=== PATIENT | female | born 1980 | race Caucasian/White ===

== ENCOUNTER 2016-04-07 17:20 | Emergency (ER) | payer OTHER, SELFPAY ==
--- NOTE | 2016-04-07 17:57 | EDDOCDS ---
Physician Documentation [facility] Name: Marycruz Izaguirre Age: 35 yrs Sex: Female : 1980 Arrival Date: 04/07/2016 Time: 17:20 Bed PR Private MD: Shanda Pcp Disposition: 04/07/16 17:49 Discharged to Home/Self Care. Impression: Pain in left foot, Pain in right foot. - Condition is Stable. - Discharge Instructions: Plantar Fasciitis. - Prescriptions for Ultram 50 mg Oral Tablet - take 1 tablet by ORAL route every 6 hours As needed MDD: 4 tabs; 16 tablet. Prednisone 20 mg Oral Tablet - take 2 tablet by ORAL route once daily for 5 days; 10 tablet. - Medication Reconciliation, Work Release Form - 1 day, Local Pharmacy Hours form. - Follow up: Emergency Department; When: As needed. Follow up: [facility]; When: Call to arrange an appointment; Reason: Wound/Symptom Recheck, Recheck today's complaints, Continuance of care. - Problem is chronic. - Symptoms are unchanged. Historical: - Allergies: Depakote (confusion); - Home Meds: 1. none - PMHx: none; - PSHx: right knee surgery; - Social history: Smoking status: Patient states former smoker of tobacco. No barriers to communication noted, The patient speaks fluent Romansh, Speaks appropriately for age. - Family history: Not pertinent. - : The pt / caregiver states he / she is not on anticoagulants. Home medication list is obtained from the patient. - Exposure Risk Screening:: None identified. 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 7 in. (170.18 cm) (R); Pain 6/10; 17:22 Body Mass Index 31.32 (90.72 kg, 170.18 cm) gr2 Signatures: Patricia EllisRN RN ck1 Heidi Munoz RN RN ead Castillo Ng PA-C PATanaC cc10 MTDD
--- NOTE | 2016-04-07 17:57 | EDDOCDS ---
Nurse's Notes [facility] Name: Marycruz Izaguirre Age: 35 yrs Sex: Female : 1980 Arrival Date: 04/07/2016 Time: 17:20 Bed PR2 / Private MD: No Pcp Diagnosis: Pain in left foot;Pain in right foot Presentation: 04/07 17:38 Presenting complaint: Patient states: pt c/o bilateral foot pain. States she was ead diagnosed with plantar fascitis by primary and told to see physical therapy. Adult Sepsis Screening: The patient does not have new or worsening altered mentation. Patient's respiratory rate is less than 22. Systolic blood pressure is greater than 100. Patient has a qSOFA score of 0- Negative Sepsis Screen. Suicide/Homicide risk assessment- the patient denies having any suicidal and/or homicidal ideations and does not present with any other emotional, behavioral or mental health complaints. Status: Patient is not a career services coordinator or dependent. Transition of care: patient was not received from another setting of care. 17:38 Acuity: AL Level 4 ead 17:38 Method Of Arrival: Walkin/Carried/Asstd ead Triage Assessment: 17:40 General: Appears in no apparent distress, comfortable, Behavior is appropriate for age, ead cooperative. Pain: Location: right foot and left foot Pain currently is 8 out of 10 on a pain scale. HIV screening NA for this visit Offered previously. Musculoskeletal: Reports pain in right foot and left foot. 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 none - PMHx: none; - PSHx: right knee surgery; - Social history: Smoking status: Patient states former smoker of tobacco. No barriers to communication noted, The patient speaks fluent Divehi, Speaks appropriately for age. - Family history: Not pertinent. - : The pt / caregiver states he / she is not on anticoagulants. Home medication list is obtained from the patient. - Exposure Risk Screening:: None identified. Screenin:55 Screening information is obtained from the patient. Fall risk: No risks identified. ck1 Assistance ADL's: requires no assistance with activities of daily living. Abuse/DV Screen: The patient / caregiver reports he/she is: not in a situation that causes fear, pain or injury. Nutritional screening: No deficits noted. Advance Directives: Currently, there is no health care proxy. home support is adequate. Assessment: 17:56 General: Appears in no apparent distress, comfortable, Behavior is appropriate for age, ck1 cooperative. Pain: Location: right foot and left foot Pain currently is 8 out of 10 on a pain scale. Derm: Skin is intact, is healthy with good turgor, Skin is pink, warm & dry. Musculoskeletal: Circulation, motion, and sensation intact Range of motion intact in all extremities. Vital Signs: 17:22 BP 136 / 84; Pulse 89; Resp 18 S; Temp 96.6(O); Pulse Ox 99% on R/A; Weight 90.72 kg gr2 (R); Height 5 ft. 7 in. (170.18 cm) (R); Pain 6/10; 17:22 Body Mass Index 31.32 (90.72 kg, 170.18 cm) gr2 Vitals: 17:22 Log In Time: April 07, 2016 at 17:22. gr2 ED Course: 17:22 Patient visited by Rose Chapman. gr2 17:22 No Pcp is Private Physician. gr2 17:22 Patient moved to Waiting gr2 17:24 Patient visited by Rose Chapman. gr2 17:24 Patient moved to Pre RCE gr2 17:39 Triage Initiated ead 17:41 Castillo Ng PA-C is PHCP. cc10 17:41 Genet Pedersen MD is Attending Physician. cc10 17:41 Patient visited by Castillo Ng PA-C. cc10 17:41 Patient visited by Castillo gN PA-C. cc10 17:41 Patient moved to PR2 / 26 ck1 17:49 [facility] is Referral Physician. cc10 17:55 No IV's were initiated during this patient's visit. No procedures done that require ck1 assistance. 17:56 The patient / caregiver is instructed regarding the plan of care and ED course. ck1 Order Results: There are currently no results for this order. Outcome: 17:49 Discharge ordered by Provider. cc10 17:55 Discharge Assessment: Patient awake, alert and oriented x 3. No cognitive and/or ck1 functional deficits noted. Patient verbalized understanding of disposition instructions. patient administered narcotics - no. The following High Risk Discharge criteria are identified: None. Discharged to home ambulatory. Condition: stable. Discharge instructions given to patient, Instructed on discharge instructions, follow up and referral plans. medication usage, Demonstrated understanding of instructions, medications, Pt was receptive of discharge instructions/ teaching. Prescriptions given X 2, Work note provided to patient. No special radiology studies were completed. Property :Personal belongings accompany Pt. 17:56 Patient left the ED. ck1 Signatures: Patricia EllisRN RN ck1 Rose Chapman gr2 Heidi MunozRN RN ead Castillo Ng, CRESCENCIO PATanaC cc10 Corrections: (The following items were deleted from the chart) 17:41 17:38 Presenting complaint: Patient states: pt c/o bilateral foot pain. States she was ead diagnosed with plantar fascitis by primary and given meds, states meds aren't working. ead MTDD
--- NOTE | 2016-04-09 18:57 | EDDOCDS ---
Physician Documentation [facility] Name: Marycruz Izaguirre Age: 35 yrs Sex: Female : 1980 Arrival Date: 04/07/2016 Time: 17:20 Bed PR Private MD: No Pcp Disposition: 04/07/16 17:49 Discharged to Home/Self Care. Impression: Pain in left foot, Pain in right foot. - Condition is Stable. - Discharge Instructions: Plantar Fasciitis. - Prescriptions for Ultram 50 mg Oral Tablet - take 1 tablet by ORAL route every 6 hours As needed MDD: 4 tabs; 16 tablet. Prednisone 20 mg Oral Tablet - take 2 tablet by ORAL route once daily for 5 days; 10 tablet. - Medication Reconciliation, Work Release Form - 1 day, Local Pharmacy Hours form. - Follow up: Emergency Department; When: As needed. Follow up: [facility]; When: Call to arrange an appointment; Reason: Wound/Symptom Recheck, Recheck today's complaints, Continuance of care. - Problem is chronic. - Symptoms are unchanged. Historical: - Allergies: Depakote (confusion); - Home Meds: 1. none - PMHx: none; - PSHx: right knee surgery; - Social history: Smoking status: Patient states former smoker of tobacco. No barriers to communication noted, The patient speaks fluent Mongolian, Speaks appropriately for age. - Family history: Not pertinent. - : The pt / caregiver states he / she is not on anticoagulants. Home medication list is obtained from the patient. - Exposure Risk Screening:: None identified. 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 7 in. (170.18 cm) (R); Pain 6/10; 17:22 Body Mass Index 31.32 (90.72 kg, 170.18 cm) gr2 MDM: 17:57 Financial registration complete. 18:19 [facility] Payment Agreement was scanned into [email or web address] and attached to record. 04/08 10:28 T-Sheet-- Draft Copy was scanned into [email or web address] and attached to record. gb Signatures: Cata Streeter, Reg Reg gb Daniel Dowling, Reg Reg lg Patricia EllisRN RN ck1 Heidi MunozRN RN eaCastillo Santiago, PATanaC PASamantha cc10 The chart was reviewed and I authenticate all verbal orders and agree with the evaluation and treatment provided.Attachments: 04/07 18:19 [facility] Payment Agreement lg 04/08 10:28 T-Sheet-- Draft Copy gb Chart Complete MTDD
--- NOTE | 2016-04-09 18:57 | EDDOCDS ---
Nurse's Notes [facility] Name: Marycruz Izaguirre Age: 35 yrs Sex: Female : 1980 Arrival Date: 04/07/2016 Time: 17:20 Bed PR2 / Private MD: No Pcp Diagnosis: Pain in left foot;Pain in right foot Presentation: 04/07 17:38 Presenting complaint: Patient states: pt c/o bilateral foot pain. States she was ead diagnosed with plantar fascitis by primary and told to see physical therapy. Adult Sepsis Screening: The patient does not have new or worsening altered mentation. Patient's respiratory rate is less than 22. Systolic blood pressure is greater than 100. Patient has a qSOFA score of 0- Negative Sepsis Screen. Suicide/Homicide risk assessment- the patient denies having any suicidal and/or homicidal ideations and does not present with any other emotional, behavioral or mental health complaints. Status: Patient is not a medical billing service or dependent. Transition of care: patient was not received from another setting of care. 17:38 Acuity: AL Level 4 ead 17:38 Method Of Arrival: Walkin/Carried/Asstd ead Triage Assessment: 17:40 General: Appears in no apparent distress, comfortable, Behavior is appropriate for age, ead cooperative. Pain: Location: right foot and left foot Pain currently is 8 out of 10 on a pain scale. HIV screening NA for this visit Offered previously. Musculoskeletal: Reports pain in right foot and left foot. 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 none - PMHx: none; - PSHx: right knee surgery; - Social history: Smoking status: Patient states former smoker of tobacco. No barriers to communication noted, The patient speaks fluent Finnish, Speaks appropriately for age. - Family history: Not pertinent. - : The pt / caregiver states he / she is not on anticoagulants. Home medication list is obtained from the patient. - Exposure Risk Screening:: None identified. Screenin:55 Screening information is obtained from the patient. Fall risk: No risks identified. ck1 Assistance ADL's: requires no assistance with activities of daily living. Abuse/DV Screen: The patient / caregiver reports he/she is: not in a situation that causes fear, pain or injury. Nutritional screening: No deficits noted. Advance Directives: Currently, there is no health care proxy. home support is adequate. Assessment: 17:56 General: Appears in no apparent distress, comfortable, Behavior is appropriate for age, ck1 cooperative. Pain: Location: right foot and left foot Pain currently is 8 out of 10 on a pain scale. Derm: Skin is intact, is healthy with good turgor, Skin is pink, warm & dry. Musculoskeletal: Circulation, motion, and sensation intact Range of motion intact in all extremities. Vital Signs: 17:22 BP 136 / 84; Pulse 89; Resp 18 S; Temp 96.6(O); Pulse Ox 99% on R/A; Weight 90.72 kg gr2 (R); Height 5 ft. 7 in. (170.18 cm) (R); Pain 6/10; 17:22 Body Mass Index 31.32 (90.72 kg, 170.18 cm) gr2 Vitals: 17:22 Log In Time: April 07, 2016 at 17:22. gr2 ED Course: 17:22 Patient visited by Rose Chapman. gr2 17:22 No Pcp is Private Physician. gr2 17:22 Patient moved to Waiting gr2 17:24 Patient visited by Rose Chapman. gr2 17:24 Patient moved to Pre RCE gr2 17:39 Triage Initiated ead 17:41 Castillo Ng PA-C is PHCP. cc10 17:41 Genet Pedersen MD is Attending Physician. cc10 17:41 Patient visited by Castillo Ng PA-C. cc10 17:41 Patient visited by Castillo Ng PA-C. cc10 17:41 Patient moved to PR2 / ck1 17:49 [facility] is Referral Physician. cc10 17:55 No IV's were initiated during this patient's visit. No procedures done that require ck1 assistance. 17:56 The patient / caregiver is instructed regarding the plan of care and ED course. ck1 18:19 [facility] [place] Agreement was scanned into [employer] and attached to record. lg 04/08 10:28 T-Sheet-- Draft Copy was scanned into [employer] and attached to record. gb Order Results: There are currently no results for this order. Outcome: 04/07 17:49 Discharge ordered by Provider. cc10 17:55 Discharge Assessment: Patient awake, alert and oriented x 3. No cognitive and/or ck1 functional deficits noted. Patient verbalized understanding of disposition instructions. patient administered narcotics - no. The following High Risk Discharge criteria are identified: None. Discharged to home ambulatory. Condition: stable. Discharge instructions given to patient, Instructed on discharge instructions, follow up and referral plans. medication usage, Demonstrated understanding of instructions, medications, Pt was receptive of discharge instructions/ teaching. Prescriptions given X 2, Work note provided to patient. No special radiology studies were completed. Property :Personal belongings accompany Pt. 17:56 Patient left the ED. ck1 Signatures: Cata Streeter, Reg Reg gb Daniel Dowling, Reg Reg lg Patricia EllisRN RN ck1 Rose Chapman gr2 Heidi MunozRN RN ead Castillo Ng, PA-C PA-C cc10 Corrections: (The following items were deleted from the chart) 17:41 17:38 Presenting complaint: Patient states: pt c/o bilateral foot pain. States she was ead diagnosed with plantar fascitis by primary and given meds, states meds aren't working. ead Chart Complete MTDD
--- NOTE | 2016-04-09 18:57 | EDDOCDS ---
Physician Documentation [facility] Name: Marycruz Izaguirre Age: 35 yrs Sex: Female : 1980 Arrival Date: 04/07/2016 Time: 17:20 Bed PR Private MD: No Pcp Disposition: 04/07/16 17:49 Discharged to Home/Self Care. Impression: Pain in left foot, Pain in right foot. - Condition is Stable. - Discharge Instructions: Plantar Fasciitis. - Prescriptions for Ultram 50 mg Oral Tablet - take 1 tablet by ORAL route every 6 hours As needed MDD: 4 tabs; 16 tablet. Prednisone 20 mg Oral Tablet - take 2 tablet by ORAL route once daily for 5 days; 10 tablet. - Medication Reconciliation, Work Release Form - 1 day, Local Pharmacy Hours form. - Follow up: Emergency Department; When: As needed. Follow up: [facility]; When: Call to arrange an appointment; Reason: Wound/Symptom Recheck, Recheck today's complaints, Continuance of care. - Problem is chronic. - Symptoms are unchanged. Historical: - Allergies: Depakote (confusion); - Home Meds: 1. none - PMHx: none; - PSHx: right knee surgery; - Social history: Smoking status: Patient states former smoker of tobacco. No barriers to communication noted, The patient speaks fluent Kyrgyz, Speaks appropriately for age. - Family history: Not pertinent. - : The pt / caregiver states he / she is not on anticoagulants. Home medication list is obtained from the patient. - Exposure Risk Screening:: None identified. 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 7 in. (170.18 cm) (R); Pain 6/10; 17:22 Body Mass Index 31.32 (90.72 kg, 170.18 cm) gr2 MDM: 17:57 Financial registration complete. 18:19 [facility] Payment Agreement was scanned into [employer] and attached to record. 04/08 10:28 T-Sheet-- Draft Copy was scanned into [employer] and attached to record. gb Signatures: Cata Streeter, Reg Reg gb Daniel Dowling, Reg Reg lg Patricia EllisRN RN ck1 Heidi MunozRN RN eaCastillo Santiago, PATanaC PASamantha cc10 The chart was reviewed and I authenticate all verbal orders and agree with the evaluation and treatment provided.Attachments: 04/07 18:19 [facility] [place] Payment Agreement lg 04/08 10:28 T-Sheet-- Draft Copy gb Chart Complete MTDD
== END 2016-04-07 17:56 | disposition home or self-care (01) ==
LOC: M ED 17:20
DX: M72.2 Plantar fascial fibromatosis (principal); Z87.891 Personal history of nicotine dependence; Z88.8 Allergy status to other drugs, medicaments and biological substances

== ENCOUNTER 2016-04-13 16:31 | Emergency (ER) | payer OTHER ==
--- NOTE | 2016-04-13 19:09 | EDDOCDS ---
Nurse's Notes [facility] Name: Marycruz Izaguirre Age: 35 yrs Sex: Female : 1980 Arrival Date: 04/13/2016 Time: 16:31 Bed I8 / 16 Private MD: No Pcp Diagnosis: Pain in unspecified foot-bilateral Presentation: 04/13 16:47 Presenting complaint: Patient states: Bilateral foot pain over the past year seen here mlb1 last week for same. Adult Sepsis Screening: The patient does not have new or worsening altered mentation. Patient's respiratory rate is less than 22. Systolic blood pressure is greater than 100. Patient has a qSOFA score of 0- Negative Sepsis Screen. Suicide/Homicide risk assessment- the patient denies having any suicidal and/or homicidal ideations and does not present with any other emotional, behavioral or mental health complaints. 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 Transition of care: patient was not received from another setting of care. 16:47 Acuity: AL Level 4 mlb1 16:47 Method Of Arrival: Walkin/Carried/Asstd mlb1 Triage Assessment: 16:49 General: Appears in no apparent distress, Behavior is appropriate for age, cooperative. mlb1 Pain: Location: heel of right foot and heal of left foot Pain currently is 4 out of 10 on a pain scale. Pain:. Pt Declines HIV testing. 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 Mirena 20 mcg/24 hr (5 years) intrauterine IUD - PMHx: none; - PSHx: right knee surgery; - Social history: Smoking status: Patient states former smoker of tobacco. No barriers to communication noted, The patient speaks fluent Trinidadian, Speaks appropriately for age. - Family history: Not pertinent. - : The pt / caregiver states he / she is not on anticoagulants. Home medication list is obtained from the patient. - Exposure Risk Screening:: None identified. Screenin:07 Screening information is obtained from the patient. Fall risk: No risks identified. dsf Assistance ADL's: requires no assistance with activities of daily living. Abuse/DV Screen: The patient / caregiver reports he/she is: not in a situation that causes fear, pain or injury. Nutritional screening: No deficits noted. Advance Directives: Currently, there is no health care proxy. home support is adequate. Assessment: 19:07 Adult Sepsis Screening: The patient does not have new or worsening altered mentation. dsf Patient's respiratory rate is less than 22. Systolic blood pressure is greater than 100. Patient has a qSOFA score of 0- Negative Sepsis Screen. General: Appears in no apparent distress, Behavior is appropriate for age, cooperative. Pain: Location: right and left heel Pain currently is 7 out of 10 on a pain scale. Quality of pain is described as sharp. Neurological: Level of Consciousness is awake, alert. Cardiovascular: No deficits noted. Respiratory: No deficits noted. Derm: Skin is pink, warm & dry. Musculoskeletal: Circulation, motion, and sensation intact. Vital Signs: 16:32 BP 154 / 77; Pulse 97; Resp 18; Temp 97.6; Pulse Ox 100% ; Weight 90.72 kg; Height 5 elp ft. 7 in. (170.18 cm); Pain 8/10; 16:32 Body Mass Index 31.32 (90.72 kg, 170.18 cm) [facility] Vitals: 16:32 Log In Time: April 13, 2016 at 16:30. [facility] ED Course: 16:32 Patient visited by Cathy Haynes PCA. elp 16:32 No Pcp is Private Physician. elp 16:32 Patient moved to Waiting elp 16:33 Patient visited by Cathy Haynes PCA. elp 16:33 Patient moved to Pre RCE elp 16:48 Triage Initiated mlb1 18:20 Lluvia Salomon FNP [facility] le 18:20 Patient moved to I8 / 16 nb2 18:34 Jean Li DPM is Referral Physician. le 18:37 Patient visited by Lluvia Salomon FNP. le 19:07 The patient / caregiver is instructed regarding the plan of care and ED course. dsf 19:07 No IV's were initiated during this patient's visit. No procedures done that require dsf assistance. Order Results: There are currently no results for this order. Outcome: 18:34 Discharge ordered by Provider. le 19:07 Discharge Assessment: Patient awake, alert and oriented x 3. No cognitive and/or dsf functional deficits noted. Patient verbalized understanding of disposition instructions. patient administered narcotics - no. The following High Risk Discharge criteria are identified: None. Discharged to home ambulatory. Condition: stable. Discharge instructions given to patient, Instructed on discharge instructions, follow up and referral plans. medication usage, Demonstrated understanding of instructions, medications, Pt was receptive of discharge instructions/ teaching. No special radiology studies were completed. Property sent home with patient. 19:09 Patient left the ED. dsf Signatures: Mitch Mcneill RN RN mlb1 Lluvia Salomon, HEAD WAITER HEAD WAITER Simran Magaña RN RN dsf Cathy Haynes, DIE REPAIRER FORGING DIE REPAIRER FORGING elp Mirian Whitman nb2 Corrections: (The following items were deleted from the chart) 16:53 16:49 Home Meds: none; gena avery MTDD
--- NOTE | 2016-04-13 19:09 | EDDOCDS ---
Physician Documentation [facility] Name: Marycruz Izaguirre Age: 35 yrs Sex: Female : 1980 Arrival Date: 04/13/2016 Time: 16:31 Bed I Private MD: Shanda Pcp Disposition: 04/13 18:37 Critical Care: Critical care not applicable. moy Disposition: 04/13/16 18:34 Discharged to Home/Self Care. Impression: Pain in unspecified foot - bilateral. - Condition is Stable. - Discharge Instructions: Plantar Fasciitis. - Medication Reconciliation, Local Pharmacy Hours form. - Follow up: Jean Li DPM; When: Call to arrange an appointment; Reason: Recheck today's complaints, Continuance of care. - Problem is an ongoing problem. - Symptoms are unchanged. - Notes: Continue to lose weight, this is what will help with the pain the most Buy a pair of shoes, with good support, for work Continue to use Naprosyn/Ibuprofen for pain Continue foot exercises Historical: - Allergies: Depakote (confusion); - Home Meds: 1. Mirena 20 mcg/24 hr (5 years) intrauterine IUD - PMHx: none; - PSHx: right knee surgery; - Social history: Smoking status: Patient states former smoker of tobacco. No barriers to communication noted, The patient speaks fluent Turkmen, Speaks appropriately for age. - Family history: Not pertinent. - : The pt / caregiver states he / she is not on anticoagulants. Home medication list is obtained from the patient. - Exposure Risk Screening:: None identified. 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 7 in. (170.18 cm); Pain 8/10; 16:32 Body Mass Index 31.32 (90.72 kg, 170.18 cm) elp Signatures: Mitch Mcneill RN RN mlb1 Lluvia Salomon, COAL PIPELINE OPERATOR COAL PIPELINE OPERATOR Simran Magaña,RN RN dsf The chart was reviewed and I authenticate all verbal orders and agree with the evaluation and treatment provided.Corrections: (The following items were deleted from the chart) 16:53 16:49 Home Meds: none; mlb1 mlb1 MTDD
--- NOTE | 2016-04-15 20:10 | EDDOCDS ---
Nurse's Notes [facility] Name: Marycruz Izaguirre Age: 35 yrs Sex: Female : 1980 Arrival Date: 04/13/2016 Time: 16:31 Bed I8 / 16 Private MD: No Pcp Diagnosis: Pain in unspecified foot-bilateral Presentation: 04/13 16:47 Presenting complaint: Patient states: Bilateral foot pain over the past year seen here mlb1 last week for same. Adult Sepsis Screening: The patient does not have new or worsening altered mentation. Patient's respiratory rate is less than 22. Systolic blood pressure is greater than 100. Patient has a qSOFA score of 0- Negative Sepsis Screen. Suicide/Homicide risk assessment- the patient denies having any suicidal and/or homicidal ideations and does not present with any other emotional, behavioral or mental health complaints. 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 Transition of care: patient was not received from another setting of care. 16:47 Acuity: AL Level 4 mlb1 16:47 Method Of Arrival: Walkin/Carried/Asstd mlb1 Triage Assessment: 16:49 General: Appears in no apparent distress, Behavior is appropriate for age, cooperative. mlb1 Pain: Location: heel of right foot and heal of left foot Pain currently is 4 out of 10 on a pain scale. Pain:. Pt Declines HIV testing. 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 Mirena 20 mcg/24 hr (5 years) intrauterine IUD - PMHx: none; - PSHx: right knee surgery; - Social history: Smoking status: Patient states former smoker of tobacco. No barriers to communication noted, The patient speaks fluent Pry[place], Speaks appropriately for age. - Family history: Not pertinent. - : The pt / caregiver states he / she is not on anticoagulants. Home medication list is obtained from the patient. - Exposure Risk Screening:: None identified. Screenin:07 Screening information is obtained from the patient. Fall risk: No risks identified. dsf Assistance ADL's: requires no assistance with activities of daily living. Abuse/DV Screen: The patient / caregiver reports he/she is: not in a situation that causes fear, pain or injury. Nutritional screening: No deficits noted. Advance Directives: Currently, there is no health care proxy. home support is adequate. Assessment: 19:07 Adult Sepsis Screening: The patient does not have new or worsening altered mentation. dsf Patient's respiratory rate is less than 22. Systolic blood pressure is greater than 100. Patient has a qSOFA score of 0- Negative Sepsis Screen. General: Appears in no apparent distress, Behavior is appropriate for age, cooperative. Pain: Location: right and left heel Pain currently is 7 out of 10 on a pain scale. Quality of pain is described as sharp. Neurological: Level of Consciousness is awake, alert. Cardiovascular: No deficits noted. Respiratory: No deficits noted. Derm: Skin is pink, warm & dry. Musculoskeletal: Circulation, motion, and sensation intact. Vital Signs: 16:32 BP 154 / 77; Pulse 97; Resp 18; Temp 97.6; Pulse Ox 100% ; Weight 90.72 kg; Height 5 elp ft. 7 in. (170.18 cm); Pain 8/10; 16:32 Body Mass Index 31.32 (90.72 kg, 170.18 cm) [facility] Vitals: 16:32 Log In Time: April 13, 2016 at 16:30. elp ED Course: 16:32 Patient visited by Cathy Haynes PCA. elp 16:32 No Pcp is Private Physician. elp 16:32 Patient moved to Waiting elp 16:33 Patient visited by Cathy Haynes PCA. elp 16:33 Patient moved to Pre RCE elp 16:48 Triage Initiated mlb1 18:20 [facility]. le 18:20 Patient moved to I8 / 16 nb2 18:34 Jean Li DPM is Referral Physician. le 18:37 Patient visited by Lluvia Salomon FNP. le 19:07 The patient / caregiver is instructed regarding the plan of care and ED course. dsf 19:07 No IV's were initiated during this patient's visit. No procedures done that require dsf assistance. 19:11 [facility] Payment Agreement was scanned into [employer] and attached to record. gjb 19:24 Patient name changed from Marycruz\S\Nicole\S\Devereese\S\ to Marycruz\S\ \S\Devereese. EDMS 04/14 10:48 T-Sheet-- Draft Copy was scanned into [employer] and attached to record. gb Order Results: There are currently no results for this order. Outcome: 04/13 18:34 Discharge ordered by Provider. le 19:07 Discharge Assessment: Patient awake, alert and oriented x 3. No cognitive and/or dsf functional deficits noted. Patient verbalized understanding of disposition instructions. patient administered narcotics - no. The following High Risk Discharge criteria are identified: None. Discharged to home ambulatory. Condition: stable. Discharge instructions given to patient, Instructed on discharge instructions, follow up and referral plans. medication usage, Demonstrated understanding of instructions, medications, Pt was receptive of discharge instructions/ teaching. No special radiology studies were completed. Property sent home with patient. 19:09 Patient left the ED. dsf Signatures: Dispatcher [employer] EDMN Cata Streeter, Reg Reg Mitch Arango RN RN mlb1 Lluvia Salomon, LINEMAN APPRENTICE Simran TrimbleRN RN dsf Cathy Haynes, DIRECTOR ASSET DIRECTOR ASSET elMariama French Nicole nb2 Corrections: (The following items were deleted from the chart) 16:53 16:49 Home Meds: none; gena avery Chart Complete MTDD
--- NOTE | 2016-04-15 20:10 | EDDOCDS ---
Physician Documentation [facility] Name: Marycruz Izaguirre Age: 35 yrs Sex: Female : 1980 Arrival Date: 04/13/2016 Time: 16:31 Bed I8 / 16 Private MD: Shanda Pcp Disposition: 04/13 18:37 Critical Care: Critical care not applicable. le Disposition: 04/13/16 18:34 Discharged to Home/Self Care. Impression: Pain in unspecified foot - bilateral. - Condition is Stable. - Discharge Instructions: Plantar Fasciitis. - Medication Reconciliation, Local Pharmacy Hours form. - Follow up: Jean Li DPM; When: Call to arrange an appointment; Reason: Recheck today's complaints, Continuance of care. - Problem is an ongoing problem. - Symptoms are unchanged. - Notes: Continue to lose weight, this is what will help with the pain the most Buy a pair of shoes, with good support, for work Continue to use Naprosyn/Ibuprofen for pain Continue foot exercises Historical: - Allergies: Depakote (confusion); - Home Meds: 1. Mirena 20 mcg/24 hr (5 years) intrauterine IUD - PMHx: none; - PSHx: right knee surgery; - Social history: Smoking status: Patient states former smoker of tobacco. No barriers to communication noted, The patient speaks fluent Persian, Speaks appropriately for age. - Family history: Not pertinent. - : The pt / caregiver states he / she is not on anticoagulants. Home medication list is obtained from the patient. - Exposure Risk Screening:: None identified. 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 7 in. (170.18 cm); Pain 8/10; 16:32 Body Mass Index 31.32 (90.72 kg, 170.18 cm) elp MDM: 19:11 [facility] Payment Agreement was scanned into [employer] and attached to record. b 19:11 Financial registration complete. b 04/14 10:48 T-Sheet-- Draft Copy was scanned into [employer] and attached to record. gb Signatures: Cata Streeter, Reg Reg gb Mitch Mcneill RN RN mlLluvia Lizarraga, CROWN PRESSER Simran TrimbleRN RN Mariama Last The chart was reviewed and I authenticate all verbal orders and agree with the evaluation and treatment provided.Corrections: (The following items were deleted from the chart) 04/13 16:53 16:49 Home Meds: none; gena avery Attachments: 19:11 [facility] Payment Agreement mary jane 04/14 10:48 T-Sheet-- Draft Copy gb Chart Complete MTDD
--- NOTE | 2016-04-15 20:10 | EDDOCDS ---
Physician Documentation [facility] Name: Marycruz Izaguirre Age: 35 yrs Sex: Female : 1980 Arrival Date: 04/13/2016 Time: 16:31 Bed I8 / 16 Private MD: Shanda Pcp Disposition: 04/13 18:37 Critical Care: Critical care not applicable. le Disposition: 04/13/16 18:34 Discharged to Home/Self Care. Impression: Pain in unspecified foot - bilateral. - Condition is Stable. - Discharge Instructions: Plantar Fasciitis. - Medication Reconciliation, Local Pharmacy Hours form. - Follow up: Jean Li DPM; When: Call to arrange an appointment; Reason: Recheck today's complaints, Continuance of care. - Problem is an ongoing problem. - Symptoms are unchanged. - Notes: Continue to lose weight, this is what will help with the pain the most Buy a pair of shoes, with good support, for work Continue to use Naprosyn/Ibuprofen for pain Continue foot exercises Historical: - Allergies: Depakote (confusion); - Home Meds: 1. Mirena 20 mcg/24 hr (5 years) intrauterine IUD - PMHx: none; - PSHx: right knee surgery; - Social history: Smoking status: Patient states former smoker of tobacco. No barriers to communication noted, The patient speaks fluent Portuguese, Speaks appropriately for age. - Family history: Not pertinent. - : The pt / caregiver states he / she is not on anticoagulants. Home medication list is obtained from the patient. - Exposure Risk Screening:: None identified. TAR HEEL: 16:50 LMP N/A - control method mlb1 Vital Signs: 16:32 BP 154 / 77; Pulse 97; Resp 18; Temp 97.6; Pulse Ox 100% ; Weight 90.72 kg / 200 lbs; elp Height 5 ft. 7 in. (170.18 cm); Pain 8/10; 16:32 Body Mass Index 31.32 (90.72 kg, 170.18 cm) elp MDM: 19:11 [facility] Payment Agreement was scanned into [employer] and attached to record. b 19:11 Financial registration complete. b 04/14 10:48 T-Sheet-- Draft Copy was scanned into [employer] and attached to record. gb Signatures: Cata Streeter, Reg Reg gb Mitch Mcneill RN RN mlLluvia Lizarraga, PAPER RULER Simran TrimbleRN RN Mariama Last The chart was reviewed and I authenticate all verbal orders and agree with the evaluation and treatment provided.Corrections: (The following items were deleted from the chart) 04/13 16:53 16:49 Home Meds: none; gena avery Attachments: 19:11 [facility] Payment Agreement mary jane 04/14 10:48 T-Sheet-- Draft Copy gb Chart Complete MTDD
== END 2016-04-13 19:09 | disposition home or self-care (01) ==
LOC: M ED 16:31
DX: M72.2 Plantar fascial fibromatosis (principal); Z88.8 Allergy status to other drugs, medicaments and biological substances; Z87.891 Personal history of nicotine dependence

== ENCOUNTER 2016-09-15 13:23 | Emergency (ER) | payer OTHER, SELFPAY ==
[~2016-09-15] VITALS: Ht 157.5 cm; Wt 94.6 kg
[2016-09-15] MEDS ORDERED: IBUPROFEN 800 MG TAB PO ONE (14:30)
[2016-09-15] MEDS ORDERED: ROBA500T PO (15:16)
[2016-09-15] MEDS ORDERED: IBUP80TA PO (15:16)
[2016-09-15 15:18] VITALS: BP 124/49
--- NOTE | 2016-09-15 15:21 | REP ---
RIGHT RIB SERIES: FIVE VIEWS INCLUDING PA CHEST HISTORY: Right anterior and lower rib pain. No comparison views. FINDINGS: PA chest radiograph is normal. There is no evidence of pneumothorax or hydrothorax. Multiple views of the right ribcage show no visible rib fracture or bony destructive lesion. IMPRESSION: Negative right rib series. Signed by Javad Gordon MD 09/15/2016 03:36 P
== END 2016-09-15 15:25 | disposition home or self-care (01) ==
LOC: M ED 13:23
DX: S23.41XA Sprain of ribs, initial encounter (principal); X58.XXXA Exposure to other specified factors, initial encounter; Y92.89 Other specified places as the place of occurrence of the external cause; Y93.89 Activity, other specified; Y99.8 Other external cause status; F17.210 Nicotine dependence, cigarettes, uncomplicated; Z88.8 Allergy status to other drugs, medicaments and biological substances

== ENCOUNTER → 2019-11-07 | Outpatient (REF) | payer BC ==
[~2019-11-07] MED LIST: IBUP80TA PO; ROBA500T PO
[2019-11-07 19:53] LABS: ALBUMIN 3.9 GM/DL (3.2-5.2); ALT/SGPT 17 U/L (12-78); BILIRUBIN,TOTAL 0.5 MG/DL (0.2-1.0); BLOOD UREA NITROGEN 7 MG/DL (7-18); CALCIUM LEVEL 8.9 MG/DL (8.5-10.1); CARBON DIOXIDE LEVEL 26 MEQ/L (21-32); CHLORIDE LEVEL 105 MEQ/L (98-107); CHOLESTEROL LEVEL 164 MG/DL (<200); CHOLESTEROL RISK RATIO 2.928 (<5); CREATININE FOR GFR 0.84 MG/DL (0.55-1.30); GLOMERULAR FILTRATION RATE > 60.0 (>60); GLUCOSE, FASTING 81 MG/DL (70-100); HDL CHOLESTEROL 56 MG/DL (>40); LDL CHOLESTEROL 90 MG/DL (<100); NON-HDL-C 108 MG/DL; POTASSIUM SERUM 4.2 MEQ/L (3.5-5.1); SODIUM LEVEL 138 MEQ/L (136-145); TOTAL PROTEIN 7.3 GM/DL (6.4-8.2); TRIGLYCERIDES LEVEL 88 MG/DL (<150)
== END ==
LOC: M LAB REF 17:58
PROVIDERS: ATTEND Family Medicine Addiction Medicine
DX: R03.0 Elevated blood-pressure reading, without diagnosis of hypertension (principal)

== ENCOUNTER → 2023-06-05 | Outpatient (CLI) | payer BC | LOC: M PLALAB 10:23 | PROVIDERS: ATTEND Advanced Practice Midwife | DX: O09.529 Supervision of elderly multigravida, unspecified trimester (principal) ==

== ENCOUNTER → 2023-06-27 | Outpatient (CLI) | payer BC | LOC: M PLALAB 10:15 | PROVIDERS: ATTEND Obstetrics & Gynecology | DX: Z34.92 Encounter for supervision of normal pregnancy, unspecified, second trimester (principal) ==

== ENCOUNTER → 2023-07-18 | Outpatient (CLI) | payer BC ==
[2023-07-18 12:05] LABS: ALKALINE PHOSPHATASE 69 U/L (46-116); ALT/SGPT 23 U/L (7.0-40); AST/SGOT 13 U/L (<34); BILIRUBIN,TOTAL 0.3 MG/DL (0.3-1.2); BLOOD UREA NITROGEN 6 MG/DL (9-23); CALCIUM LEVEL 9.2 MG/DL (8.5-10.1); CARBON DIOXIDE LEVEL 24 MMOL/L (20-31); CHLORIDE LEVEL 105 MMOL/L (98-107); CREATININE FOR GFR 0.58 MG/DL (0.55-1.30); GLOMERULAR FILTRATION RATE > 60.0 (>58); GLUCOSE, FASTING 81 MG/DL (60-100); POTASSIUM SERUM 3.9 MMOL/L (3.5-5.1); SODIUM LEVEL 136 MMOL/L (136-145)
== END ==
LOC: M PLALAB 08:28
PROVIDERS: ATTEND Obstetrics & Gynecology
DX: Z20.5 Contact with and (suspected) exposure to viral hepatitis (principal)

== ENCOUNTER → 2023-07-25 | Outpatient (CLI) | payer BC | LOC: M WHC 09:47 | PROVIDERS: ATTEND Obstetrics & Gynecology | DX: Z34.92 Encounter for supervision of normal pregnancy, unspecified, second trimester (principal) ==

== ENCOUNTER → 2023-09-07 | Outpatient (CLI) | payer BC | LOC: M WHC 06:46 | PROVIDERS: ATTEND Obstetrics & Gynecology | DX: Z36.2 Encounter for other antenatal screening follow-up (principal) ==

== ENCOUNTER → 2023-09-14 | Outpatient (CLI) | payer BC ==
[2023-09-14 14:07] LABS: HEMATOCRIT 33.6 % (36.0-47.0); HEMOGLOBIN 10.7 g/dl (12.0-15.5); MEAN CORPUSCULAR HEMOGLOBIN 29.7 pg (27.0-33.0); MEAN CORPUSCULAR HGB CONC 31.8 g/dl (32.0-36.5); MEAN CORPUSCULAR VOLUME 93.3 fl (80.0-96.0); PLATELET COUNT, AUTOMATED 153 10^3/uL (150-450); WHITE BLOOD COUNT 7.1 10^3/uL (4.0-10.0)
[2023-09-14 15:33] LABS: GC DNA AMPLIFICATION NEGATIVE (NEGATIVE)
== END ==
LOC: M PLALAB 09:17
PROVIDERS: ATTEND Obstetrics & Gynecology
DX: O09.522 Supervision of elderly multigravida, second trimester (principal); Z3A.00 Weeks of gestation of pregnancy not specified

== ENCOUNTER → 2023-10-09 | Outpatient (CLI) | payer BC | LOC: M WHC 07:50 | PROVIDERS: ATTEND Obstetrics & Gynecology | DX: O09.522 Supervision of elderly multigravida, second trimester (principal) ==

== ENCOUNTER → 2023-10-31 | Outpatient (REF) | payer BC | LOC: M SFHCWAGY 15:00 | PROVIDERS: ATTEND Nurse Practitioner Women's Health | DX: M54.50 Low back pain, unspecified (principal) ==

== ENCOUNTER 2023-11-05 17:43 | Outpatient (CLI) | payer BC ==
[~2023-11-05] VITALS: Ht 170.2 cm; Wt 105.3 kg
[2023-11-05] MEDS ORDERED: FERR325T3 PO (18:04)
[2023-11-05] MEDS ORDERED: PRENTAB9 PO (18:04)
[2023-11-05] MEDS ORDERED: ASPI81CH33 PO (18:04)
[2023-11-05] MEDS ORDERED: LABE100T40 PO (18:04)
[2023-11-05] MEDS ORDERED: HOME MED LIST COMPLETE! XX SCH (18:05)
[2023-11-05 18:10] VITALS: BP 181/89; O2SAT 97
[2023-11-05 18:11] VITALS: BP 153/78
[2023-11-05 18:24] VITALS: BP 153/78
[2023-11-05] MEDS: LABETALOL 100MG TAB PO ONE (18:24)
[2023-11-05 19:07] LABS: CREATININE,RANDOM URINE 17.2 MG/DL
[2023-11-05 19:11] LABS: HEMATOCRIT 34.9 % (36.0-47.0); HEMOGLOBIN 11.3 g/dl (12.0-15.5); MEAN CORPUSCULAR HEMOGLOBIN 29.3 pg (27.0-33.0); MEAN CORPUSCULAR HGB CONC 32.4 g/dl (32.0-36.5); MEAN CORPUSCULAR VOLUME 90.4 fl (80.0-96.0); PLATELET COUNT, AUTOMATED 146 10^3/uL (150-450); RED BLOOD COUNT 3.86 10^6/uL (4.00-5.40)
[2023-11-05 19:11] LABS: TOTAL PROTEIN,RANDOM URINE < 6.0 MG/DL (0.0-14.0)
[2023-11-05 19:21] LABS: ALBUMIN 2.6 G/DL (3.2-5.2); ALKALINE PHOSPHATASE 118 U/L (46-116); ALT/SGPT 16 U/L (7.0-40); AST/SGOT 13 U/L (<34); BILIRUBIN,TOTAL 0.2 MG/DL (0.3-1.2); BLOOD UREA NITROGEN < 5 MG/DL (9-23); CALCIUM LEVEL 8.4 MG/DL (8.5-10.1); CARBON DIOXIDE LEVEL 22 MMOL/L (20-31); CHLORIDE LEVEL 111 MMOL/L (98-107); GLOMERULAR FILTRATION RATE > 60.0 (>58); GLUCOSE, FASTING 101 MG/DL (60-100); POTASSIUM SERUM 3.4 MMOL/L (3.5-5.1); SODIUM LEVEL 141 MMOL/L (136-145); TOTAL PROTEIN 5.9 G/DL (5.7-8.2)
== END 2023-11-05 19:41 | disposition home or self-care (01) ==
LOC: M LDO 17:43
PROVIDERS: ATTEND Obstetrics & Gynecology
DX: O10.013 Pre-existing essential hypertension complicating pregnancy, third trimester (principal); O09.523 Supervision of elderly multigravida, third trimester; R10.2 Pelvic and perineal pain; Z88.5 Allergy status to narcotic agent; Z3A.34 34 weeks gestation of pregnancy
CPT/HCPCS: 59025; 80053; 82570; 84156; 85027; G0463

== ENCOUNTER → 2023-11-07 | Outpatient (CLI) | payer BC ==
[~2023-11-07] MED LIST changes: +ASPI81CH33 PO; +FERR325T3 PO; +LABE100T40 PO; +PRENTAB9 PO
== END ==
LOC: M WHC 07:51
PROVIDERS: ATTEND Obstetrics & Gynecology
DX: E66.9 Obesity, unspecified (principal)

== ENCOUNTER → 2023-11-21 | Outpatient (REF) | payer BC ==
[~2023-11-21] MED LIST changes: +ACET-683 PO; +COLA100C5 PO; +IBUP-1022 PO
== END ==
LOC: M PLALAB 07:50
PROVIDERS: ATTEND Obstetrics & Gynecology
DX: Z36.89 Encounter for other specified antenatal screening (principal); Z3A.36 36 weeks gestation of pregnancy

== ENCOUNTER 2023-12-03 07:53 | Inpatient (IN) | payer BC ==
[~2023-12-03] VITALS: Ht 170.2 cm; Wt 106.9 kg
[2023-12-03] VITALS (19 sets, daily range): BP systolic 122–171; BP diastolic 66–89
[~2023-12-03 07:53] MED LIST changes: -ACET-683 PO; -COLA100C5 PO; -IBUP-1022 PO
[2023-12-03] MEDS ORDERED: OXYTOCIN DRIP 30 UNITS in IV 1 EA IV PRN (08:15)
[2023-12-03] MEDS ORDERED: HOME MED LIST COMPLETE! XX SCH (08:20)
[2023-12-03 09:24] LABS: HEMATOCRIT 34.7 % (36.0-47.0); HEMOGLOBIN 11.4 g/dl (12.0-15.5); MEAN CORPUSCULAR HEMOGLOBIN 29.2 pg (27.0-33.0); MEAN CORPUSCULAR HGB CONC 32.9 g/dl (32.0-36.5); PLATELET COUNT, AUTOMATED 138 10^3/uL (150-450); WHITE BLOOD COUNT 7.7 10^3/uL (4.0-10.0)
[2023-12-03] MEDS: miSOPROStol 50MCG 1/2 TABLET SL SCH (09:27)
[2023-12-03] MEDS: LABETALOL 100MG TAB PO SCH (18:31)
[2023-12-03] MEDS: BUTORPHANOL 2 MG/ML 1ML VIAL IV ONE (20:40)
[2023-12-03] MEDS: PROMETHAZINE 25MG/ML 1ML VIAL IV ONE (20:40)
[2023-12-04] VITALS (17 sets, daily range): BP systolic 118–156; BP diastolic 65–89; O2SAT 95–98
[2023-12-04] MEDS: LR 1,000 ML IV SCH (04:08)
[2023-12-04] MEDS: OXYTOCIN DRIP 30 UNITS in IV 1 EA IV SCH (04:09)
[2023-12-04] MEDS ORDERED: ONDANSETRON 4MG 2ML VIAL IV PRN (04:30)
[2023-12-04] MEDS ORDERED: NALOXONE INJ 0.4MG/1ML VIAL IV PRN (04:30)
[2023-12-04] MEDS ORDERED: EPIDURAL/PCA KEYS XX PRN (04:30)
[2023-12-04] MEDS ORDERED: diphenhydrAMINE 50MG/ML VIAL IV PRN (04:30)
[2023-12-04] MEDS ORDERED: FENTANYL/ROPIVACAINE/NACL BAG 100 ML EPIDURAL SCH (04:30)
[2023-12-04] MEDS ORDERED: LR 500 ML IV PRN (04:30)
[2023-12-04] MEDS ORDERED: ePHEDrine SULFATE 25 MG/5 ML(5MG/ML) SYRINGE IVP PRN (04:30)
[2023-12-04] MEDS: LIDOCAINE 1% MDV 20ML VIAL INFIL PRN (05:08)
[2023-12-04] MEDS ORDERED: DIBUCAINE 1% OINTMENT 30GM TOP PRN (05:10)
[2023-12-04] MEDS ORDERED: IBUPROFEN 600MG TAB PO PRN (05:10)
[2023-12-04] MEDS ORDERED: IBUPROFEN 800 MG TAB PO PRN (05:10)
[2023-12-04] MEDS ORDERED: RHO(D) IMMUNE GLOBULIN/MALTOSE 500MCG(2500IU)/2.2ML VIAL (WINRHO) IM SCH (05:10)
[2023-12-04] MEDS ORDERED: ACETAMINOPHEN 500 MG TAB PO PRN (05:10)
[2023-12-04] MEDS ORDERED: DOCUSATE SODIUM 100MG CAPSULE PO PRN (05:10)
[2023-12-04] MEDS ORDERED: METHYLERGONOVINE MALEATE 0.2 MG TAB PO PRN (05:10)
[2023-12-04] MEDS: PRENATAL VITAMINS CHEWABLE TABLET PO SCH (09:00)
[2023-12-04] MEDS: ACETAMINOPHEN TAB 650MG DOSE (2X325MG) PO PRN (23:23)
[2023-12-05 02:00] VITALS: BP 129/70; O2SAT 97
[2023-12-05 05:51] VITALS: BP 128/75; O2SAT 98
[2023-12-05 06:32] VITALS: BP 133/81
[2023-12-05] MEDS: MEASLES,MUMPS,RUBELLA VACCINE INJ (MMR-II) SC.IMMUN ONE (09:12)
[2023-12-05] MEDS ORDERED: COLA100C5 PO (09:31)
[2023-12-05] MEDS ORDERED: ACET-683 PO (09:31)
[2023-12-05] MEDS ORDERED: IBUP-1022 PO (09:31)
[2023-12-05 10:47] VITALS: BP 140/82; O2SAT 96
[2023-12-06 08:12] LABS: HCV RNA QUANTITATION <15 NOT DETECTED IU/mL (NOT DETECTED); HCV RNA log10 <1.18 NOT DETECTED Log IU/mL (NOT DETECTED)
== END 2023-12-05 13:30 | disposition home or self-care (01) | DRG 560 ==
LOC: M LDI 07:53 → M OBS 12-04 06:19
PROVIDERS: ADMIT Specialist; ATTEND Specialist
PROC: 3E0P7GC Introduction of Other Therapeutic Substance into Female Reproductive, Via Natural or Artificial Opening (ICD-10-PCS; 2023-12-03)
PROC: 10E0XZZ Delivery of Products of Conception, External Approach (ICD-10-PCS; principal; 2023-12-04)
PROC: 10907ZC Drainage of Amniotic Fluid, Therapeutic from Products of Conception, Via Natural or Artificial Opening (ICD-10-PCS; 2023-12-04)
PROC: 0HQ9XZZ Repair Perineum Skin, External Approach (ICD-10-PCS; 2023-12-04)
DX: O10.02 Pre-existing essential hypertension complicating childbirth (principal); O70.0 First degree perineal laceration during delivery; Z3A.38 38 weeks gestation of pregnancy; Z79.82 Long term (current) use of aspirin; Z79.899 Other long term (current) drug therapy; Z87.891 Personal history of nicotine dependence; Z37.0 Single live birth

== ENCOUNTER → 2024-05-13 | Outpatient (CLI) | payer BC ==
[~2024-05-13] MED LIST changes: +ACET-683 PO; +COLA100C5 PO; +IBUP-1022 PO
[2024-05-13 18:40] LABS: ALBUMIN 3.7 G/DL (3.2-5.2); ALKALINE PHOSPHATASE 83 U/L (35-104); ALT/SGPT 26 U/L (7.0-40); AST/SGOT 18 U/L (<34); BILIRUBIN,TOTAL 0.6 MG/DL (0.3-1.2); BLOOD UREA NITROGEN 8 MG/DL (9-23); CALCIUM LEVEL 8.9 MG/DL (8.5-10.1); CARBON DIOXIDE LEVEL 28 MMOL/L (20-31); CHLORIDE LEVEL 104 MMOL/L (98-107); CHOLESTEROL LEVEL 207 MG/DL (<200); CHOLESTEROL RISK RATIO 4.19 (<5); CREATININE FOR GFR 0.68 MG/DL (0.55-1.30); GLOMERULAR FILTRATION RATE > 60.0 (>58); GLUCOSE, FASTING 92 MG/DL (60-100); HDL CHOLESTEROL 49.4 MG/DL (>40); LDL CHOLESTEROL 107.6 MG/DL (<100); NON-HDL-C 157.6 MG/DL; POTASSIUM SERUM 4.1 MMOL/L (3.5-5.1); SODIUM LEVEL 139 MMOL/L (136-145); THYROID STIMULATING HORMONE 1.902 uIU/ML (0.55-4.78); TOTAL PROTEIN 7.1 G/DL (5.7-8.2); TRIGLYCERIDES LEVEL 250 MG/DL (<150)
[2024-05-13 19:10] LABS: HEMATOCRIT 46.6 % (36.0-47.0); HEMOGLOBIN 15.1 g/dl (12.0-15.5); MEAN CORPUSCULAR HEMOGLOBIN 30.9 pg (27.0-33.0); MEAN CORPUSCULAR HGB CONC 32.4 g/dl (32.0-36.5); MEAN CORPUSCULAR VOLUME 95.5 fl (80.0-96.0); PLATELET COUNT, AUTOMATED 221 10^3/uL (150-450); RED BLOOD COUNT 4.88 10^6/uL (4.00-5.40); WHITE BLOOD COUNT 5.6 10^3/uL (4.0-10.0)
[2024-05-13 19:13] LABS: HEMOGLOBIN A1c 4.8 % (4.0-6.0)
== END ==
LOC: M PLALAB 14:13
PROVIDERS: ATTEND Nurse Practitioner Adult Health
DX: I10 Essential (primary) hypertension (principal)

== ENCOUNTER → 2025-02-02 | Outpatient (CLI) | payer BC ==
[~2025-02-02] MED LIST changes: -IBUP-1022 PO; +IBUP600T42 PO
[2025-02-02 10:28] LABS: PLATELET COUNT, AUTOMATED 198 10^3/uL (150-450)
[2025-02-02 10:56] LABS: ALT/SGPT 26 U/L (7.0-40); AST/SGOT 18 U/L (<34); CALCIUM LEVEL 8.6 MG/DL (8.5-10.1); CARBON DIOXIDE LEVEL 25 MMOL/L (20-31); CHLORIDE LEVEL 109 MMOL/L (98-107); CHOLESTEROL LEVEL 178 MG/DL (<200); CHOLESTEROL RISK RATIO 4.40 (<5); CREATININE FOR GFR 0.78 MG/DL (0.55-1.30); GLOMERULAR FILTRATION RATE > 90.0 (>58); LDL CHOLESTEROL 99.8 MG/DL (<100); NON-HDL-C 137.6 MG/DL; POTASSIUM SERUM 4.2 MMOL/L (3.5-5.1); SODIUM LEVEL 143 MMOL/L (136-145); TRIGLYCERIDES LEVEL 189 MG/DL (<150)
[2025-02-02 10:58] LABS: FREE T4 0.99 NG/DL (0.89-1.76)
== END ==
LOC: M LAB 09:58
DX: I10 Essential (primary) hypertension (principal); Z13.220 Encounter for screening for lipoid disorders; Z13.1 Encounter for screening for diabetes mellitus